=== PATIENT | female | born 1980 | race Caucasian/White ===

== ENCOUNTER 2018-07-09 08:01 | Emergency (ER) | payer OTHER ==
[~2018-07-09] VITALS: Ht 154.9 cm; Wt 74.8 kg
[~2018-07-09 08:01] MED LIST: ALEVE220 MG PO; APAP500 PO; IBUPROFEN 600600 M1 PO; NORCO 5-325 TA1 EACH PO
[2018-07-09] MEDS ORDERED: IBUPROFEN 200200 M1 PO (08:22)
[2018-07-09] MEDS ORDERED: TYLENOL325 MG PO (08:22)
[2018-07-09] MEDS ORDERED: IBUPROFEN 600600 M1 PO (08:45)
[2018-07-09] MEDS ORDERED: MEDROLDOSEPACK PO (08:45)
[2018-07-09] MEDS ORDERED: SENNA-DOCUSATE1 EAC1 PO (08:45)
[2018-07-09] MEDS ORDERED: NORCO 7.5-3251 EACH PO (08:45)
[2018-07-09 10:15] VITALS: BP 110/61
== END 2018-07-09 10:18 | disposition home or self-care (01) ==
LOC: ER 08:01
DX: M54.41 Lumbago with sciatica, right side (principal); F17.210 Nicotine dependence, cigarettes, uncomplicated; Z88.1 Allergy status to other antibiotic agents

== ENCOUNTER 2018-08-18 00:59 | Emergency (ER) | payer OTHER ==
[~2018-08-18] VITALS: Ht 154.9 cm; Wt 74.4 kg
[~2018-08-18 00:59] MED LIST changes: +IBUPROFEN 200200 M1 PO; +MEDROLDOSEPACK PO; +NORCO 7.5-3251 EACH PO; +SENNA-DOCUSATE1 EAC1 PO; +TYLENOL325 MG PO
[2018-08-18] MEDS ORDERED: TRAMADOL 50 MG50 MG PO (02:20)
[2018-08-18] MEDS ORDERED: PREDNISONE 20 M20 MG PO (02:20)
[2018-08-18 05:00] VITALS: BP 129/66
== END 2018-08-18 06:35 | disposition home or self-care (01) ==
LOC: ER 00:59
DX: M54.41 Lumbago with sciatica, right side (principal); G89.29 Other chronic pain; F17.210 Nicotine dependence, cigarettes, uncomplicated; Z88.1 Allergy status to other antibiotic agents